=== PATIENT | male | born 1980 | race Hispanic/Latino ===

== ENCOUNTER 2017-10-28 15:54 | Emergency (ER) | payer SELFPAY ==
[2017-10-28 15:55] VITALS: BP 142/100; PULSE 90; RESP 19; TEMP 36.4; O2SAT 99; BMI 32.1
--- NOTE | 2017-10-28 16:03 | EKG12_ITS ---
Test Reason : CHESTOTHER Blood Pressure : / mmHG Vent. Rate : 073 BPM Atrial Rate : 073 BPM P-R Int : 138 ms QRS Dur : 080 ms QT Int : 362 ms P-R-T Axes : 048 076 032 degrees QTc Int : 398 ms Normal sinus rhythm Nonspecific T wave abnormality Abnormal ECG Confirmed by BARBIE ROCHA MD ([id number]), script editor MARIANGEL ROPER ([id number] on 11/02/2017 3:57:14 PM Referred By: ANAHI
--- NOTE | 2017-10-28 16:15 | ED.VISSUMM ---
- ER Visit Summary Date of Service: 10/28/17 Chief Complaint: Cough History of Present Illness: The patient is a 37 M who is otherwise very healthy. Patient states that 2 days ago he began to have runny nose fever chills sweats. He notes generalized myalgias and headache. He notes now his anterior chest wall is sore. He tried to work today but could not because of sweating. No immunosuppression. There is no asthma or lung conditions. He is not chronically ill. Physical Examination: Afebrile vital signs are stable Gen: Well-nourished well-developed Head: Normocephalic atraumatic Eyes: Perrl EOMI ENT: TMs clear clear rhinorrhea moist mucous membranes Neck: Supple no lymphadenopathy no JVD nontender CVS: Regular rate rhythm no murmurs normal S1-S2 Respiratory: No distress clear to auscultation bilaterally mild anterior chest wall tenderness to palpation Abdomen: Soft nontender nondistended normal bowel sounds no masses Back: Nontender Extremity: Nontender no edema Skin: Normal color no rash Neuro: alert orientated ?3 CN II-XII intact normal strength sensation reflexes gait cerebellar Psych: Normal affect normal mood Test Results: Influenza a positive Emergency Department Course and Treatment: Received a dose of Motrin. His chest pain is reproducible on most likely chest wall related due to the coughing. He is encouraged to orally hydrate. Return if worsening. Impression: 1. Influenza A 2. Costochondritis This note was generated with [employer] dictation software. It may contain incorrect words, spelling, and punctuation that were not noted in review of the chart prior to signing ED Disposition - Plan for ED Patient: Disposition: Home or Assisted Living Chief Complaint: Cold Sx Instructions: ED Flu Prescriptions: Ibuprofen [Motrin] 800 mg PO TID PRN PRN #20 tab PRN Reason: Bladder Spasm Referrals: Care Physician,No Primary [Primary Care Provider] - Brendon Mcmahon DO [STAFF PHYSICIAN] -
[2017-10-28] MEDS: Ibuprofen 400 MG Tablet 800 MG PO (16:20)
[2017-10-28 16:55] VITALS: PULSE 87; RESP 16
[2017-10-28 17:19] VITALS: BP 137/82; PULSE 99; RESP 16; O2SAT 97
== END 2017-10-28 17:19 | disposition home or self-care (01) ==
PROVIDERS: Emergency Provider Emergency Medicine
DX: J09.X2 Influenza due to identified novel influenza A virus with other respiratory manifestations (principal); M94.0 Chondrocostal junction syndrome [Tietze]
CPT/HCPCS: 87804; 93005; 99283